=== PATIENT | male | born 1950 | race Caucasian/White ===

== ENCOUNTER 2017-08-18 16:50 | Emergency (ER) | payer OTHER ==
--- NOTE | 2017-08-18 17:00 | EDM.PDOC ---
ED HPI GENERAL MEDICAL PROBLEM - General Chief Complaint: General Stated Complaint: Cough, fever Time Seen by Provider: 08/18/17 17:15 Source of Information: Reports: Patient, Family History Limitations: Reports: No Limitations - History of Present Illness INITIAL COMMENTS - FREE TEXT/NARRATIVE: Sudden increase in SOB since this morning. Congested cough for two days. Fever today. [place] well yesterday, good appetite. No GI changes. No changes. History of metastatic colon cancer, heart failure/afib, recent blood clot in leg /PE. On Warfarin. Per family, patient not scheduled to start chemo treatment until September due to his not having insurance. Trying to apply for insurance coverage at this time. - Related Data Allergies Allergy/AdvReac Type Severity Reaction Status Date / Time acetaminophen Allergy Nausea Verified 08/18/17 16:56 Home Meds: Home Meds Diltiazem HCl [Cartia Xt] 1 tab PO DAILY 08/18/17 [History] Furosemide [Lasix] 20 mg PO DAILY 08/18/17 [History] Potassium Chloride 40 meq PO ASDIRECTED 08/18/17 [History] Sennosides [Senna] 1 tab PO BEDTIME 08/18/17 [History] Warfarin [Coumadin] 1.25 mg PO MOTH 08/18/17 [History] Warfarin [Coumadin] 2.5 mg PO SUTUWEFRSA 08/18/17 [History] Past Medical History Cardiovascular History: Reports: Afib, Blood Clots/VTE/DVT, Heart Failure Oncologic (Cancer) History: Reports: Colon, Metastatic ED ROS GENERAL - Review of Systems Review Of Systems: See Below Constitutional: Reports: Fever, Weakness, Weight Loss. Denies: Chills, Malaise , Diaphoresis, Decreased Appetite HEENT: Reports: No Symptoms Respiratory: Reports: Shortness of Breath, Cough, Sputum. Denies: Wheezing, Pleuritic Chest Pain, Hemoptysis Cardiovascular: Reports: Dyspnea on Exertion. Denies: Chest Pain, Lightheadedness, Palpitations GI/Abdominal: Reports: Abdominal Pain (chronic, blames it on colon cancer, right inguinal hernia. ), Other (colostomy). Denies: Black Stool, Bloody Stool , Constipation, Diarrhea : Reports: No Symptoms Musculoskeletal: Reports: No Symptoms (no acute changes) Skin: Reports: No Symptoms Neurological: Reports: No Symptoms Psychiatric: Reports: No Symptoms ED EXAM, GENERAL - Physical Exam Exam: See Below Exam Limited By: No Limitations General Appearance: Alert, No Apparent Distress, Cachetic, Other (frequent cough ) Eye Exam: Bilateral Eye: EOMI, PERRL Ears: Normal External Exam Nose: No: Nasal Deformity, Nasal Swelling, Nasal Drainage Throat/Mouth: Normal Lips, Normal Voice, No Airway Compromise Head: Atraumatic, Normocephalic Neck: Supple, Non-Tender, Full Range of Motion Respiratory/Chest: Other (diminished breath sounds throughout, faint rhonchi noted bilaterally, no rales/crackles. Mild increased effor in breathing/using some abdominal musculature, no retractions) Cardiovascular: Normal Peripheral Pulses, No Murmur, Other (appears regular in rate, no murmur) Peripheral Pulses: 2+: Radial (L), Radial (R) GI/Abdominal: Soft, Other (mild tenderness right abdomen mid/lower. Patient says that this is not unusual for him. Small hernia palpable right inguinal area. ) (Male) Exam: Deferred Rectal (Males) Exam: Deferred Back Exam: No: CVA Tenderness (L), CVA Tenderness (R) Extremities: Non-Tender, Pedal Edema (bilateral) Neurological: Alert, Oriented, Normal Cognition, No Motor/Sensory Deficits Psychiatric: Normal Affect, Normal Mood Skin Exam: Warm, Dry Course - Vital Signs Last Recorded V/S: Last Vital Signs Temp 38.1 C 08/18/17 16:53 Pulse 92 08/18/17 16:53 Resp 18 08/18/17 16:53 BP 94/65 08/18/17 16:53 Pulse Ox 85 L 08/18/17 16:53 - Orders/Labs/Meds Orders: Active Orders 24 hr Category Date Time Status Chest 2V [CR] Stat Exams 08/18/17 16:58 Taken CULTURE BLOOD [BC] Stat Lab 08/18/17 17:15 Received CULTURE BLOOD [BC] Stat Lab 08/18/17 17:42 Received UA W/MICROSCOPIC [URIN] Stat Lab 08/18/17 17:34 Ordered Sodium Chloride 0.9% [Normal Saline] 1,000 ml Med 08/18/17 17:30 Active IV ASDIRECTED Blood Culture x2 Reflex Set [OM.PC] Stat Oth 08/18/17 17:34 Ordered Medication Orders Sodium Chloride (Normal Saline) 1,000 mls @ 999 mls/hr IV ASDIRECTED SAULO Last Admin: 08/18/17 17:20 Dose: 999 mls/hr Labs: Laboratory Tests 08/18/17 08/18/17 08/18/17 Range/Units 17:15 17:15 17:15 WBC 8.6 (4.0-10.2) K/uL RBC 3.53 L (4.33-5.41) M/uL Hgb 9.2 L (13.1-16.8) g/dL Hct 28.6 L (39.0-49.0) % MCV 81.0 L (84.0-98.0) fL MCH 26.1 L (28.2-33.3) pg MCHC 32.2 (31.7-36.0) g/dL RDW 17.3 H (11.2-14.1) % Plt Count 401 H (150-350) K/uL Neut % (Auto) 75.5 (45.0-80.0) % Lymph % (Auto) 12.5 (10.0-50.0) % [place] % (Auto) 10.3 (2.0-14.0) % Eos % (Auto) 1.6 (0.0-5.0) % Baso % (Auto) 0.1 (0.0-2.0) % Neut # (Auto) 6.52 (1.40-7.00) K/uL Lymph # (Auto) 1.08 (0.50-3.50) K/uL [place] # (Auto) 0.89 (0.00-1.00) K/uL Eos # (Auto) 0.14 (0.00-0.50) K/uL Baso # (Auto) 0.01 (0.00-0.20) K/uL PT (9.8-11.7) SEC INR Sodium 128 L (136-145) mmol/L Potassium 4.3 (3.5-5.1) mmol/L Chloride 94 L (98-107) mmol/L Carbon Dioxide 26.3 (21.0-32.0) mmol/L BUN 10 (7-18) mg/dL Creatinine 0.76 (0.51-1.17) mg/dL Est Cr Clr Drug Dosing 97.02 mL/min Estimated GFR (MDRD) > 60 mL/min Glucose 104 (74-106) mg/dL Lactic Acid 1.0 (0.4-2.0) mmol/L Calcium 9.4 (8.5-10.1) mg/dL Total Bilirubin 0.3 (0.2-1.0) mg/dL AST 33 (15-37) U/L ALT 25 (12-78) U/L Alkaline Phosphatase 166 H (46-116) IU/L NT-Pro-B Natriuret Pep (0-125) pg/mL Total Protein 8.1 (6.4-8.2) g/dL Albumin 2.3 L (3.4-5.0) g/dL 08/18/17 08/18/17 Range/Units 17:15 17:15 WBC (4.0-10.2) K/uL RBC (4.33-5.41) M/uL Hgb (13.1-16.8) g/dL Hct (39.0-49.0) % MCV (84.0-98.0) fL MCH (28.2-33.3) pg MCHC (31.7-36.0) g/dL RDW (11.2-14.1) % Plt Count (150-350) K/uL Neut % (Auto) (45.0-80.0) % Lymph % (Auto) (10.0-50.0) % [place] % (Auto) (2.0-14.0) % Eos % (Auto) (0.0-5.0) % Baso % (Auto) (0.0-2.0) % Neut # (Auto) (1.40-7.00) K/uL Lymph # (Auto) (0.50-3.50) K/uL [place] # (Auto) (0.00-1.00) K/uL Eos # (Auto) (0.00-0.50) K/uL Baso # (Auto) (0.00-0.20) K/uL PT 16.8 H (9.8-11.7) SEC INR 1.5 Sodium (136-145) mmol/L Potassium (3.5-5.1) mmol/L Chloride (98-107) mmol/L Carbon Dioxide (21.0-32.0) mmol/L BUN (7-18) mg/dL Creatinine (0.51-1.17) mg/dL Est Cr Clr Drug Dosing mL/min Estimated GFR (MDRD) mL/min Glucose (74-106) mg/dL Lactic Acid (0.4-2.0) mmol/L Calcium (8.5-10.1) mg/dL Total Bilirubin (0.2-1.0) mg/dL AST (15-37) U/L ALT (12-78) U/L Alkaline Phosphatase (46-116) IU/L NT-Pro-B Natriuret Pep 1212 H (0-125) pg/mL Total Protein (6.4-8.2) g/dL Albumin (3.4-5.0) g/dL Meds: Medications Generic Name Dose Route Start Last Admin Trade Name Freq PRN Reason Stop Dose Admin Sodium Chloride 1,000 mls @ 999 mls/hr 08/18/17 17:30 08/18/17 17:20 Normal Saline IV 999 mls/hr ASDIRECTED SAULO Administration - Radiology Interpretation Free Text/Narrative:: Chest xray did not show pneumonia, pneumothorax. No obvious pleural effusions. - Re-Assessments/Exams Free Text/Narrative Re-Assessment/Exam: 08/18/17 18:42 INR subtheraputic. WBC normal. Low Hgb. Sodium 128 Given complex recent history, cancer, and multiple problems noted in ER, it was felt that patient would best benefit from care at [facility]. [facility] is where he has been doctoring since the cancer diagnosis. Suspect combination of pneumonia, ongoing issues with PE, and metastatic cancer are contributing to patient's complaints this visit. Call placed to , hospitalist at [facility]. He accepted the patient in transfer for ongoing care at their facility. He will consult Oncology as needed. 1 liter of NS given in ER to help with low BP as well as hyponatremia. DuoNeb given. [facility] did not wish for us to start antibiotics prior to transfer. INR subtheraputic and will also be addressed by [facility]. Patient remained stable during stay and prior to transfer. Departure - Departure Time of Disposition: 18:34 Disposition: DC/Tfer to Acute Hospital 02 Condition: Fair Clinical Impression: Colon carcinoma metastatic to multiple sites, Hypoxia, Hyponatremia, Cough Hypotension Qualifiers: Hypotension type: unspecified hypotension type Qualified Code(s): I95.9 - Hypotension, unspecified Fever Qualifiers: Fever type: unspecified Qualified Code(s): R50.9 - Fever, unspecified Anemia Qualifiers: Anemia type: unspecified type Qualified Code(s): D64.9 - Anemia, unspecified - Discharge Information Referrals: PCP,Unknown [Primary Care Provider] - Forms: ED Department Discharge - My Orders Last 24 Hours: My Active Orders 08/18/17 16:58 Chest 2V [CR] Stat 08/18/17 17:15 CULTURE BLOOD [BC] Stat 08/18/17 17:30 Sodium Chloride 0.9% [Normal Saline] 1,000 ml IV ASDIRECTED 08/18/17 17:34 UA W/MICROSCOPIC [URIN] Stat Blood Culture x2 Reflex Set [OM.PC] Stat 08/18/17 17:42 CULTURE BLOOD [BC] Stat - Assessment/Plan Last 24 Hours: My Active Orders 08/18/17 16:58 Chest 2V [CR] Stat 08/18/17 17:15 CULTURE BLOOD [BC] Stat 08/18/17 17:30 Sodium Chloride 0.9% [Normal Saline] 1,000 ml IV ASDIRECTED 08/18/17 17:34 UA W/MICROSCOPIC [URIN] Stat Blood Culture x2 Reflex Set [OM.PC] Stat 08/18/17 17:42 CULTURE BLOOD [BC] Stat
[2017-08-18] MEDS ORDERED: Sodium Chloride 0.9% 1,000 ML IV SCH (17:30)
[2017-08-18 17:50] LABS: CHLORIDE,CL 94 mmol/L (98-107); SODIUM,NA 128 mmol/L (136-145)
[2017-08-18] MEDS ORDERED: Albuterol/Ipratropium 3.0-0.5 MG/3 ML Neb Soln NEB ONE (18:47)
== END 2017-08-18 19:00 ==
LOC: LL.ED 16:50
DX: C18.9 Malignant neoplasm of colon, unspecified (principal); C79.89 Secondary malignant neoplasm of other specified sites; R09.02 Hypoxemia; E87.1 Hypo-osmolality and hyponatremia; R05 Cough; I95.9 Hypotension, unspecified; R50.9 Fever, unspecified; D64.9 Anemia, unspecified; Z88.6 Allergy status to analgesic agent; Z79.899 Other long term (current) drug therapy; Z79.01 Long term (current) use of anticoagulants
CPT/HCPCS: 36415; 71046; 80053; 83605; 83880; 85025; 85610; 87040; 94640; 96360; 99284; J7030